=== PATIENT | female | born 1970 | race Caucasian/White ===

== ENCOUNTER 2020-11-02 07:30 | Day surgery (SDC) | payer OTHER ==
[~2020-11-02] VITALS: Ht 167.6 cm; Wt 85.7 kg
[~2020-11-02 07:30] MED LIST: CALCIUM 600 +1 EAC4 PO; DAILY VALUE1 EACH PO
--- NOTE | 2020-11-02 08:49 | NUR ---
11/02/20 0849 [place],Keena 0858 PT ARRIVED TO PACU AND WAKES TO VERBAL STIMULI AND IS REORIETNED TO PACU. PT EASILY FALLS BACK TO SLEEP. RESP EVEN AND UNLABORED.
--- NOTE | 2020-11-02 16:51 | OR ---
[facility] [address], [place] [address] Signed DATE OF OPERATION: 11/02/2020 SURGEON: Sarah Kern MD PREOPERATIVE DIAGNOSIS: Screening. PREOPERATIVE DIAGNOSIS: Minimal internal hemorrhoids. PROCEDURE: Colonoscopy without biopsy. ESTIMATED BLOOD LOSS: None. INDICATIONS: Karen is a 49-year-old female, asked to see me for her initial screening colonoscopy. She has no lower GI complaints. There is no family history of colon cancer or polyps. In the office, I gave her a pamphlet on colonoscopy. She understands the nature of the test. She understands there is risk including, but not limited to gas bloating, crampy abdominal pain, bleeding, perforation requiring surgery, and missed diagnosis. She also understands the need for IV conscious sedation. She had expressed understanding and wished to proceed. PROCEDURE NOTE: Karen was taken into our endoscopy suite and placed in the left lateral decubitus position. She was given a total of 6 mg of Versed and 150 mcg of fentanyl to cover the case. A digital rectal exam was performed and this was unremarkable. The adult colonoscope was introduced and advanced under direct visualization of the camera into the cecum itself. Her prep was quite excellent. We could easily see the appendiceal orifice and ileocecal valve. The scope was slowly withdrawn. We found no polyps or diverticula in the colon. The rectum was unremarkable. Upon retroflexion of scope, she has very minimal internal hemorrhoid columns. After this, the gas was suctioned out and the colonoscope removed. Karen tolerated the procedure quite well. RECOMMENDATIONS: Karen can follow up in 10 years for a repeat colonoscopy. Electronically Signed By: SARAH KERN MD 11/02/20 9441 PATIENT NAME: KAREN GRAFF OPERATIVE REPORT DATE OF : 68 REPORT #: [id number] PHYSICIAN: SARAH KERN MD PCP: RAGHAV MOTA PAC REPORT IS CONFIDENTIAL AND NOT TO BE RELEASED WITHOUT AUTHORIZATION [facility] [address] [place] [id number] Signed MD TYREL Saucedo/BRITTANY /[id number] cc: MD Raghav Saucedo PA Copies: SARAH KERN MD ~ Electronically Signed By: SARAH KERN MD 11/02/20 1651 PATIENT NAME: KAREN GRAFF OPERATIVE REPORT DATE OF : 68 REPORT #: [id number] PHYSICIAN: SARAH KERN MD PCP: RAGHAV MOTA PAC REPORT IS CONFIDENTIAL AND NOT TO BE RELEASED WITHOUT AUTHORIZATION
== END 2020-11-02 09:24 | disposition home or self-care (01) ==
LOC: OPS 07:30 → DS 07:30 → OPS 08:00 → DS 09:00 → OPS 09:00
PROVIDERS: ATTEND Colon & Rectal Surgery
PROC: 0DJD8ZZ Inspection of Lower Intestinal Tract, Via Natural or Artificial Opening Endoscopic (ICD-10-PCS; principal; 2020-11-02 08:00)
DX: Z12.11 Encounter for screening for malignant neoplasm of colon (principal); K64.8 Other hemorrhoids; E55.9 Vitamin D deficiency, unspecified
CPT/HCPCS: 84703; 99153; G0500; J2250; J3010; J7121